=== PATIENT | female | born 1995 | race Caucasian/White ===

== ENCOUNTER 2017-03-12 17:54 | Emergency (ER) | payer OTHER ==
[2017-03-12] MEDS ORDERED: SODIUM CHLORIDE 0.9% 1,000 ML IV ONE (18:13)
--- NOTE | 2017-03-12 18:39 | ED Physician Documentation ---
History of Present Illness - Stated complaint Stated Complaint: NAUSEA,DIARRHEA,ABD PX.CHILLS - Chief complaint Chief Complaint: General - History obtained from History obtained from: Patient - History of Present Illness Timing: Other (3 months, intermittent) Pain level max: 4 Pain level now: 1 Improved by: nothing Worsened by: nothing - Additonal information Additional information: Patient is a 21-year-old female who presents to the emergency department with intermittent abdominal pain for the past 3 months. This occurs for 2-3 days of the time, mainly nausea and increased belching. No diarrhea. Occasional vomiting. Does not seem to be related to her menstrual cycle. She does occasionally get chills as well. Denies any fevers. No recent travel. No vaginal bleeding or discharge. Review of Systems Ten Systems: 10 systems reviewed and negative Constitutional: reports: Chills, Myalgias (Body aches) Ears: denies: Drainage/discharge Nose: denies: Rhinorrhea / runny nose, Congestion Throat: denies: Sore throat Cardiac: denies: Chest pain / pressure Respiratory: denies: Cough, Wheezing GI: reports: Abdominal Pain (Crampy, epigastric), Nausea, Vomiting. denies: Diarrhea, Hematemesis, Bloody / black stool : denies: Dysuria, Frequency, Hesitancy, Incontinent, Discharge, Missed period , Now EGA Skin: denies: Rash Musculoskeletal: denies: Neck pain, Back pain Neurologic: denies: Focal weakness, Numbness, Confused, Altered mental status, Headache PD PAST MEDICAL HISTORY - Past Medical History Past Medical History: No - Past Surgical History Past Surgical History: No - Present Medications Home Medications: Ambulatory Orders Medication Instructions Recorded Confirmed Ondansetron Odt [Zofran] 4 mg TL Q6H PRN #10 tablet 03/12/17 - Allergies Allergies/Adverse Reactions: Allergies Allergy/AdvReac Type Severity Reaction Status Date / Time No Known Drug Allergies Allergy Verified 03/12/17 18:12 - Social History Does the pt smoke?: No Smoking Status: Never smoker Does the pt drink ETOH?: No Does the pt have substance abuse?: No - Immunizations Immunizations are current?: Yes PD ED PE NORMAL - Vitals Vital signs reviewed: Yes - General General: Alert and oriented X 3, No acute distress, Well developed/nourished - HEENT HEENT: PERRL, Moist mucous membranes, Pharynx benign - Neck Neck: Supple, no meningeal sign - Cardiac Cardiac: RRR, No murmur, Strong equal pulses - Respiratory Respiratory: No respiratory distress, Clear bilaterally - Abdomen Abdomen: Normal bowel sounds, Soft, Non tender, Non distended, No organomegaly - Female Female : Pt declined - Back Back: No CVA TTP, No spinal TTP - Derm Derm: Warm and dry, No rash - Extremities Extremities: No edema - Neuro Neuro: Alert and oriented X 3 - Psych Psych: Normal mood, Normal affect Results - Vitals Vitals: Vital Signs - 24 hr 03/12/17 03/12/17 03/12/17 18:08 19:43 20:58 Temperature 37.6 C H 39.0 C H Heart Rate 81 102 H Respiratory 18 15 15 Rate Blood Pressure 115/72 109/42 L O2 Saturation 100 100 03/12/17 03/12/17 21:23 22:26 Temperature 37.8 C H 37.7 C H Heart Rate 98 99 Respiratory 15 16 Rate Blood Pressure 106/50 L 102/53 L O2 Saturation 99 100 Oxygen O2 Source Room air - Labs Labs: Laboratory Tests 03/12/17 03/12/17 03/12/17 18:05 18:05 18:07 WBC 7.9 RBC 3.90 L Hgb 12.0 Hct 36.0 L MCV 92.5 MCH 30.7 MCHC 33.2 RDW 12.6 Plt Count 212 MPV 8.4 Neut # 6.5 Lymph # 0.7 L [place] # 0.7 Eos # 0.0 Baso # 0.0 Absolute Nucleated RBC 0.00 Nucleated RBCs 0.0 Sodium 136 Potassium 3.7 Chloride 105 Carbon Dioxide 23 Anion Gap 8.0 BUN 15 Creatinine 0.7 Estimated GFR (MDRD) 107 Glucose 95 Calcium 9.0 Total Bilirubin 0.5 AST 21 ALT 20 Alkaline Phosphatase 50 Total Protein 7.2 Albumin 4.3 Globulin 2.9 Albumin/Globulin Ratio 1.5 Lipase 25 Urine Color Urine Clarity Urine pH Ur Specific [place] Urine Protein Urine Glucose (UA) Urine Ketones Urine Occult Blood Urine Nitrite Urine Bilirubin Urine Urobilinogen Ur Leukocyte Esterase Ur Microscopic Review Urine Culture Comments Urine HCG, Qual H. pylori IgG Antibody Negative 03/12/17 18:20 WBC RBC Hgb Hct MCV MCH MCHC RDW Plt Count MPV Neut # Lymph # [place] # Eos # Baso # Absolute Nucleated RBC Nucleated RBCs Sodium Potassium Chloride Carbon Dioxide Anion Gap BUN Creatinine Estimated GFR (MDRD) Glucose Calcium Total Bilirubin AST ALT Alkaline Phosphatase Total Protein Albumin Globulin Albumin/Globulin Ratio Lipase Urine Color YELLOW Urine Clarity CLEAR Urine pH 6.0 Ur Specific [place] 1.020 Urine Protein NEGATIVE Urine Glucose (UA) NEGATIVE Urine Ketones NEGATIVE Urine Occult Blood NEGATIVE Urine Nitrite NEGATIVE Urine Bilirubin NEGATIVE Urine Urobilinogen 0.2 (NORMAL) Ur Leukocyte Esterase NEGATIVE Ur Microscopic Review NOT INDICATED Urine Culture Comments NOT INDICATED Urine HCG, Qual NEGATIVE H. pylori IgG Antibody - Rads (name of study) CT abdomen pelvis Radiology: Prelim report reviewed, EMP read contemporaneously, See rad report ( No acute abnormality) PD MEDICAL DECISION MAKING - ED course Complexity details: reviewed results, re-evaluated patient, considered differential, d/w patient, d/w family ED course: Patient is a 21-year-old female who presents to the emergency department with vague symptoms that seem to occur for 2-3 days for the past 3 months. These seem to occur about once a month. She did develop a fever in the emergency department, resolved with Tylenol. No acute findings on laboratory testing. No acute findings on CT scan. Abdomen is soft, nontender nondistended on serial exam. Nausea resolved with Zofran. Unclear if these incidents are related to each other or not. She is currently in college. Denies any alcohol or drug use. We will have her follow-up with her PCP for further evaluation and care. Patient and family counseled regarding signs and symptoms for which I believe and urgent re-evaluation would be necessary. Patient with good understanding of and agreement to plan and is comfortable going home at this time This document was made in part using voice recognition software. While efforts are made to proofread this document, sound alike and grammatical errors may occur. No recent travel. No new medications. Departure - Departure Disposition: Home, Self Care Clinical Impression: Abdominal pain Qualifiers: Abdominal location: generalized Qualified Code(s): R10.84 - Generalized abdominal pain Fever Qualifiers: Fever type: unspecified Qualified Code(s): R50.9 - Fever, unspecified Condition: Good Instructions: ED Fever Unconf Cause, ED Abdominal Pain Unkn Cause Follow-Up: [facility] [Provider Group] - Within 1 week Prescriptions: Ondansetron Odt [Zofran] 4 mg TL Q6H PRN #10 tablet PRN Reason: Nausea / Vomiting Comments: The cause of your symptoms is unclear today. You would benefit from further testing with your doctor. Dr. Gold or Dr. Patiño may be willing to see you. Return if you worsen. Discharge Date/Time: 03/12/17 22:27
[2017-03-12 18:46] LABS: BASOPHILS % (AUTO) 0.2 %; EOSINOPHILS % (AUTO) 0.4 %; LYMPHOCYTES # (AUTO) 0.7 10^3/uL (1.5-3.5); LYMPHOCYTES % (AUTO) 8.8 %; MEAN CORPUSCULAR HEMOGLOBIN 30.7 pg (27.0-31.0); MEAN CORPUSCULAR HGB CONC 33.2 g/dL (32.0-36.0); MEAN CORPUSCULAR VOLUME 92.5 fL (81.0-99.0); MEAN PLATELET VOLUME 8.4 fL (7.9-10.8); MONOCYTES # (AUTO) 0.7 10^3/uL (0.0-1.0); MONOCYTES % (AUTO) 8.3 %; NEUTROPHILS # (AUTO) 6.5 10^3/uL (1.5-6.6); NEUTROPHILS % (AUTO) 82.3 %; RED CELL DISTRIBUTION WIDTH 12.6 % (12.0-15.0); UNCORRECTED WHITE BLOOD COUNT 7.9 x10^3/uL; WHITE BLOOD COUNT 7.9 x10^3/uL (4.8-10.8)
[2017-03-12 18:51] LABS: BILIRUBIN,URINE NEGATIVE (NEGATIVE)
[2017-03-12 18:52] LABS: HCG UR QUAL NEGATIVE; UA CHARGE (STRIP ONLY) YES; UR CULTURE IF IND NOT INDICATED
[2017-03-12 18:59] LABS: ALBUMIN/GLOBULIN RATIO 1.5 (1.0-2.2); BILIRUBIN,TOTAL 0.5 mg/dL (0.2-1.0); CREATININE 0.7 mg/dL (0.4-1.0); POTASSIUM 3.7 mmol/L (3.5-5.0); TOTAL PROTEIN 7.2 g/dL (6.7-8.2)
[2017-03-12] MEDS ORDERED: ONDANSETRON ODT 4 MG TABLET TL STA (19:27)
[2017-03-12] MEDS ORDERED: MAG HYDROX/AL HYDROX/SIMETH 30 ML UDC PO STA (19:27)
[2017-03-12] MEDS ORDERED: PHENobarb/HYOSCY/ATROPINE/SCOP 5 ML SYRINGE PO STA (19:27)
[2017-03-12] MEDS ORDERED: SUCRALFATE 1 GM/10 ML UDC PO STA (19:27)
[2017-03-12] MEDS ORDERED: PHENobarb/HYOSCY/ATROPINE/SCOP 5 ML SYRINGE PO ONE (19:32)
[2017-03-12] MEDS ORDERED: MAG HYDROX/AL HYDROX/SIMETH 30 ML UDC ONE (19:32)
[2017-03-12] MEDS ORDERED: SUCRALFATE 1 GM/10 ML UDC ONE (19:32)
[2017-03-12] MEDS ORDERED: ONDANSETRON ODT 4 MG TABLET ONE (19:32)
[2017-03-12] MEDS ORDERED: ACETAMINOPHEN 325 MG TABLET PO STA (19:48)
[2017-03-12 19:49] LABS: H. PYLORI IGG ANTIBODY Negative (Negative); HPYLORI NEG QC Negative (Negative); HPYLORI POS QC POSITIVE (Positive)
[2017-03-12] MEDS ORDERED: ACETAMINOPHEN 325 MG TABLET PO ONE (19:49)
[2017-03-12] MEDS ORDERED: IOPAMIDOL-300 100 ML VIAL IVP ONE (21:06)
--- NOTE | 2017-03-12 22:16 | CT Preliminary Report ---
Exam: CT Abdomen/Pelvis W/ IMPRESSION: Negative contrast enhanced CT of the abdomen and pelvis. No acute solid or hollow viscus organ abnormalities to account for the patient's abdominal pain. [facility] SITE ID: [id number]
--- NOTE | 2017-03-12 22:18 | CT Report ---
EXAM: CT ABDOMEN AND PELVIS EXAM DATE: 03/12/2017 09:15 PM. CLINICAL HISTORY: Abd pain, fever, vomiting. COMPARISONS: None. TECHNIQUE: Routine helical CT imaging was performed through the abdomen and pelvis. IV contrast: 100 cc Isovue-300. Enteric contrast: No. Reconstructions: Coronal and sagittal. In accordance with CT protocol optimization, one or more of the following dose reduction techniques w ere utilized for this exam: automated exposure control, adjustment of mA and/or KV based on patient s ize, or use of iterative reconstructive technique. FINDINGS: Lung Bases: Unremarkable. Liver: Normal. No masses. Gallbladder/Bile Ducts: Unremarkable. Spleen: Normal. Pancreas: Normal. Adrenal Glands: Normal. Kidneys: Normal. No masses or hydronephrosis. Peritoneal Cavity/Bowel: No dilated or thick-walled bowel is seen. No enlarged mesenteric or retroper itoneal lymph nodes. There is a small amount of free fluid within the pelvis. No intraperitoneal free air. The appendix is well visualized and normal. Pelvic Organs: Normal. The bladder and visualized pelvic organs are within normal limits. Vasculature: No aneurysms or other significant abnormality. Bones: No significant abnormality. Other: None. IMPRESSION: Negative contrast enhanced CT of the abdomen and pelvis. No acute solid or hollow viscus organ abnormalities to account for the patient's abdominal pain. [facility] Referring Provider Line: [phone] SITE ID: [id number]
[2017-03-12 22:27] VITALS: BP 102/53
== END 2017-03-12 22:27 | disposition home or self-care (01) ==
LOC: ED 17:54
DX: R10.84 Generalized abdominal pain (principal); R50.9 Fever, unspecified; R11.2 Nausea with vomiting, unspecified; R19.7 Diarrhea, unspecified
CPT/HCPCS: 36415; 74177; 80053; 81003; 81025; 83690; 85025; 87339; 96360; 96361; 99284; A9270; Q0162; Q9967; 81001; 87086